=== PATIENT | male | born 1980 | race Hispanic/Latino ===

== ENCOUNTER 2019-05-06 14:23 | Emergency (ER) | payer BC | END 2019-05-06 15:45 | disposition home or self-care (01) | LOC: ERS 14:23 | DX: K61.0 Anal abscess (principal) | CPT/HCPCS: 87070; 87077; 87186; 87205; 99283 ==

== ENCOUNTER 2022-08-18 14:28 | Emergency (ER) | payer BC ==
[~2022-08-18 14:28] MED LIST: Iopamidol-370 76% 500 ML 1 ML ONE
[2022-08-18] MEDS ORDERED: Clindamycin/D5W 900 mg/50 ml Premix Bag ONE (14:49)
[2022-08-18 15:16] LABS: #Eosinphils 0.2 thou/uL (0.0-0.7); #Lymphocytes 1.9 thou/uL (1.20-3.40); #Monocytes 0.8 thou/uL (0.11-0.59); %Basophils 0.3 % (0.0-1.0); %Eosinophils 2.5 % (0.0-10.0); %Lymphocytes 21.5 % (21.0-51.0); %Monocytes 8.7 % (0.0-10.0); %Neutrophils 66.9 % (42.0-75.0); Hemoglobin 15.3 g/dL (14.0-18.0); Mean Corpuscular HGB CONC 32.8 g/dL (32.0-36.0); Mean Corpuscular Hemoglobin 31.3 pg (27.0-31.0); Mean Corpuscular Volume 95.5 fL (78.0-98.0); Mean Platelet Volume 7.2 fL (7.4-10.4); Platelet Count 298 thou/uL (130-400); RBC Distribution Width 11.8 % (11.5-14.5); Red Blood Cell (RBC) Count 4.89 mill/uL (4.70-6.10)
[2022-08-18] MEDS ORDERED: cefTRIAXone\\ROCEPHIN 1 GM VIAL ONE (15:58)
[2022-08-18 15:59] LABS: ALT (SGPT) 64 U/L (8-55); AST (SGOT) 35 U/L (5-34); Albumin 3.7 g/dL (3.5-5.0); Alkaline Phosphatase 103 U/L (40-110); Anion Gap 14 mmol/L (10-20); BUN (Urea Nitrogen) 11 mg/dL (8.9-20.6); Bilirubin, Total 0.4 mg/dL (0.2-1.2); Calc. Creatinine Clearance 0 mL/min (70-130); Calcium 9.4 mg/dL (7.8-10.44); Carbon Dioxide 25 mmol/L (22-29); Chloride 102 mmol/L (98-107); Estimated GFR 110; Globulin 4.4 g/dL (2.4-3.5); Glucose 145 mg/dL (70-105); Potassium 3.9 mmol/L (3.5-5.1); Protein, Total 8.1 g/dL (6.0-8.3); Sodium 137 mmol/L (136-145)
[2022-08-18] MEDS ORDERED: Lidocaine 1% PF 5 ML VIAL ONE (16:15)
[2022-08-18] MEDS ORDERED: Fentanyl 100 MCG/2 ML VIAL ONE ×2 (16:19→16:23)
== END 2022-08-18 17:38 | disposition home or self-care (01) ==
LOC: ERS 14:28
DX: L02.416 Cutaneous abscess of left lower limb (principal); L03.116 Cellulitis of left lower limb; S80.02XD Contusion of left knee, subsequent encounter; W22.09XA Striking against other stationary object, initial encounter
CPT/HCPCS: 36415; 80053; 83605; 85025; 87040; J0696; J3010; J3490

== ENCOUNTER 2022-08-19 16:47 | Inpatient (IN) | payer BC ==
[~2022-08-19 16:47] MED LIST changes: +Iopamidol 370 76% 100 ML VIAL ONE; -Iopamidol-370 76% 500 ML 1 ML ONE
[2022-08-19 18:19] LABS: #Eosinphils 0.2 thou/uL (0.0-0.7); #Lymphocytes 2.1 thou/uL (1.20-3.40); #Neutrophils 4.6 thou/uL (1.40-6.50); %Basophils 0.3 % (0.0-1.0); %Eosinophils 2.9 % (0.0-10.0); %Lymphocytes 26.3 % (21.0-51.0); %Monocytes 12.1 % (0.0-10.0); %Neutrophils 58.4 % (42.0-75.0); Hemoglobin 15.6 g/dL (14.0-18.0); Mean Corpuscular HGB CONC 33.9 g/dL (32.0-36.0); Mean Corpuscular Hemoglobin 32.9 pg (27.0-31.0); Mean Platelet Volume 6.8 fL (7.4-10.4); Platelet Count 287 thou/uL (130-400); RBC Distribution Width 11.6 % (11.5-14.5); Red Blood Cell (RBC) Count 4.73 mill/uL (4.70-6.10); White Blood Cell (WBC) Count 7.9 thou/uL (4.8-10.8)
[2022-08-19 18:37] LABS: ALT (SGPT) 56 U/L (8-55); AST (SGOT) 31 U/L (5-34); Albumin 3.6 g/dL (3.5-5.0); Alkaline Phosphatase 96 U/L (40-110); Anion Gap 12 mmol/L (10-20); BUN (Urea Nitrogen) 10 mg/dL (8.9-20.6); Bilirubin, Total 0.3 mg/dL (0.2-1.2); Calc. Creatinine Clearance 0 mL/min (70-130); Carbon Dioxide 26 mmol/L (22-29); Chloride 100 mmol/L (98-107); Estimated GFR 109; Globulin 4.4 g/dL (2.4-3.5); Glucose 77 mg/dL (70-105); Potassium 3.9 mmol/L (3.5-5.1); Sodium 134 mmol/L (136-145)
[2022-08-19] MEDS ORDERED: Piperacillin/Tazobactam 3.375 GM VIAL ONE (21:00)
[2022-08-19] MEDS ORDERED: Boostrix 0.5 ML (Tdap) VIAL (>/=7 yrs of age) ONE (21:12)
[2022-08-19] MEDS ORDERED: VANCOMYCIN 2 GRAM/500 ML BAG 2 GM in Premix Bag 1 BAG IVPB SCH (21:30)
[2022-08-19] MEDS ORDERED: hydrALAZINE 20 MG/ML VIAL ONE (21:51)
[2022-08-19] MEDS ORDERED: Ondansetron ODT 4 MG TAB PO PRN (21:56)
[2022-08-19] MEDS ORDERED: Ondansetron PF 4 MG/2 ML Vial IVP PRN (21:56)
[2022-08-19] MEDS ORDERED: Cefepime 2 GM in Sodium Chloride 0.9% 100 ML IVPB SCH ×2 (22:30→23:59)
[2022-08-19 23:36] VITALS: BMI 44.8
[2022-08-20] MEDS: Acetaminophen 325 MG TAB PO PRN ×3 (00:02→19:09)
[2022-08-20 07:10] LABS: #Eosinphils 0.2 thou/uL (0.0-0.7); #Lymphocytes 1.9 thou/uL (1.20-3.40); #Monocytes 0.7 thou/uL (0.11-0.59); #Neutrophils 4.8 thou/uL (1.40-6.50); %Basophils 0.5 % (0.0-1.0); %Lymphocytes 25.3 % (21.0-51.0); %Monocytes 8.6 % (0.0-10.0); %Neutrophils 62.6 % (42.0-75.0); Hemoglobin 14.9 g/dL (14.0-18.0); Mean Corpuscular HGB CONC 32.9 g/dL (32.0-36.0); Mean Corpuscular Hemoglobin 31.9 pg (27.0-31.0); Mean Corpuscular Volume 97.1 fL (78.0-98.0); Mean Platelet Volume 6.9 fL (7.4-10.4); Platelet Count 318 thou/uL (130-400); RBC Distribution Width 11.7 % (11.5-14.5); Red Blood Cell (RBC) Count 4.67 mill/uL (4.70-6.10); White Blood Cell (WBC) Count 7.7 thou/uL (4.8-10.8)
[2022-08-20 07:33] LABS: ALT (SGPT) 57 U/L (8-55); AST (SGOT) 30 U/L (5-34); Albumin 3.5 g/dL (3.5-5.0); Alkaline Phosphatase 86 U/L (40-110); Anion Gap 12 mmol/L (10-20); BUN (Urea Nitrogen) 9 mg/dL (8.9-20.6); Bilirubin, Total 0.6 mg/dL (0.2-1.2); Calc. Creatinine Clearance 177 mL/min (70-130); Calcium 8.7 mg/dL (7.8-10.44); Carbon Dioxide 25 mmol/L (22-29); Chloride 102 mmol/L (98-107); Estimated GFR 101; Globulin 3.9 g/dL (2.4-3.5); Glucose 117 mg/dL (70-105); Potassium 3.9 mmol/L (3.5-5.1); Protein, Total 7.4 g/dL (6.0-8.3); Sodium 135 mmol/L (136-145)
[2022-08-20] MEDS ORDERED: FLU VACC QS2022-23(6MOS UP)/PF 60 MCG/0.5 ML SYRINGE IM ONE (09:00)
[2022-08-20] MEDS: Cyanocobalamin (Vitamin B-12) 1,000 MCG TAB PO SCH (09:07)
[2022-08-20] MEDS: VANCOMYCIN 2 GRAM/500 ML BAG 2 GM in Premix Bag 1 BAG IVPB SCH ×2 (09:07→22:03)
[2022-08-20] MEDS: Folic Acid 1 MG TAB PO SCH (09:07)
[2022-08-20] MEDS: Enoxaparin Sodium 40 MG/0.4 ML SYRINGE SC SCH ×2 (09:07→21:51)
[2022-08-20] MEDS: Thiamine 100 MG TAB PO SCH (09:07)
[2022-08-20] MEDS ORDERED: Morphine 4 MG/ML VIAL SLOW IVP PRN (09:43)
[2022-08-20] MEDS ORDERED: Lisinopril 10 MG TAB PO SCH (10:00)
[2022-08-20] MEDS ORDERED: cefTRIAXone\\ROCEPHIN 2 GM in Sodium Chloride 0.9% 100 ML IVPB SCH (13:00)
[2022-08-20 20:42] VITALS: BP 143/87; TEMP 97.9
[2022-08-21] MEDS ORDERED: Ibuprofen 600 MG TAB PO SCH (02:00)
[2022-08-21 06:44] LABS: #Basophils 0.1 thou/uL (0.0-0.2); #Eosinphils 0.2 thou/uL (0.0-0.7); #Lymphocytes 1.5 thou/uL (1.20-3.40); #Monocytes 0.6 thou/uL (0.11-0.59); %Basophils 0.9 % (0.0-1.0); %Eosinophils 3.7 % (0.0-10.0); %Lymphocytes 23.7 % (21.0-51.0); %Neutrophils 62.7 % (42.0-75.0); Hemoglobin 14.8 g/dL (14.0-18.0); Mean Corpuscular HGB CONC 33.3 g/dL (32.0-36.0); Mean Corpuscular Volume 96.1 fL (78.0-98.0); Mean Platelet Volume 6.8 fL (7.4-10.4); Platelet Count 309 thou/uL (130-400); RBC Distribution Width 11.5 % (11.5-14.5); Red Blood Cell (RBC) Count 4.63 mill/uL (4.70-6.10); White Blood Cell (WBC) Count 6.4 thou/uL (4.8-10.8)
[2022-08-21 07:20] LABS: ALT (SGPT) 51 U/L (8-55); AST (SGOT) 27 U/L (5-34); Albumin 3.5 g/dL (3.5-5.0); Alkaline Phosphatase 82 U/L (40-110); Anion Gap 14 mmol/L (10-20); BUN (Urea Nitrogen) 11 mg/dL (8.9-20.6); Calc. Creatinine Clearance 179 mL/min (70-130); Calcium 8.8 mg/dL (7.8-10.44); Carbon Dioxide 23 mmol/L (22-29); Chloride 102 mmol/L (98-107); Estimated GFR 102; Glucose 99 mg/dL (70-105); Potassium 3.7 mmol/L (3.5-5.1); Protein, Total 7.5 g/dL (6.0-8.3); Sodium 135 mmol/L (136-145)
[2022-08-21 07:41] LABS: Bilirubin, Total 0.5 mg/dL (0.2-1.2)
[2022-08-21] MEDS: Cyanocobalamin (Vitamin B-12) 1,000 MCG TAB PO SCH (07:54)
[2022-08-21] MEDS: Folic Acid 1 MG TAB PO SCH (07:54)
[2022-08-21] MEDS: Enoxaparin Sodium 40 MG/0.4 ML SYRINGE SC SCH (07:54)
[2022-08-21] MEDS: Acetaminophen 325 MG TAB PO PRN (07:55)
[2022-08-21] MEDS: Thiamine 100 MG TAB PO SCH (07:55)
[2022-08-21] MEDS ORDERED: Lisinopril 10 MG TAB PO SCH (09:00)
[2022-08-21] MEDS ORDERED: Ibuprofen 600 MG TAB PO PRN (09:03)
[2022-08-21 09:13] LABS: Vancomycin, Trough 17.5 ug/mL
[2022-08-21] MEDS: VANCOMYCIN 2 GRAM/500 ML BAG 2 GM in Premix Bag 1 BAG IVPB SCH (10:16)
== END 2022-08-21 13:05 | disposition home or self-care (01) | DRG 603 ==
LOC: ERS 16:47 → T4-B 20:33
PROVIDERS: ADMIT Family Medicine; ATTEND Family Medicine
DX: L03.116 Cellulitis of left lower limb (principal); F10.10 Alcohol abuse, uncomplicated; R73.03 Prediabetes; Z20.822 Contact with and (suspected) exposure to COVID-19; Z79.899 Other long term (current) drug therapy
CPT/HCPCS: 10060; 36415; 80053; 80202; 83036; 83605; 85025; 85652; 86140; 87040; 90471; 90686; 90715; 96365; 96368; 96374; 96375; 97139; G0008; J0360; J0692; J0696; J1650; J2270; J2543; J3010; J3370; J3490; Q9967; U0003; U0005